=== PATIENT | female | born 1995 | race Two or more races ===

== ENCOUNTER 2023-12-19 02:17 | Emergency (ER) | payer OTHER ==
[~2023-12-19] VITALS: Ht 160 cm; Wt 57.6 kg
[2023-12-19] MEDS ORDERED: DEXAMETHASONE SODIUM PHOSPHATE 4 MG/ML VIAL IM STA (03:41)
[2023-12-19] MEDS ORDERED: ACETAMINOPHEN 500 MG GEL..CAP PO STA (03:42)
[2023-12-19] MEDS ORDERED: ORPHENADRINE CITRATE 30 MG/ML AMPUL IM STA (03:43)
== END 2023-12-19 04:07 | disposition home or self-care (01) ==
LOC: ER
DX: M94.0 Chondrocostal junction syndrome [Tietze] (principal); Z88.0 Allergy status to penicillin; Z88.6 Allergy status to analgesic agent